=== PATIENT | female | born 1970 | race Caucasian/White ===

== ENCOUNTER 2024-12-31 04:43 | Emergency (ER) | payer BC ==
[~2024-12-31] VITALS: Ht 170.2 cm; Wt 58.1 kg
[2024-12-31 05:57] LABS: APPEARANCE,URINE CLEAR (CLEAR); BILIRUBIN,URINE NEGATIVE (NEGATIVE); BLOOD, URINE TRACE-INTA Ery/uL (NEGATIVE); COLOR,URINE YELLOW (YELLOW); KETONES,URINE NEGATIVE (NEGATIVE); LEUKOCYTE ESTERASE ,URINE 1+ (NEGATIVE); NITRITE, URINE NEGATIVE (NEGATIVE); PROTEIN,URINE NEGATIVE (NEGATIVE); UGLUCOSE NEGATIVE (NEGATIVE); UROBILINOGEN,URINE 0.2 EU/dL (0.2)
[2024-12-31 06:05] LABS: ADD URINE CULTURE YES; BACTERIA,URINE Many /HPF (None Seen)
[2024-12-31 06:06] LABS: MUCUS,URINE Many /LPF (None Seen); SQUAMOUS EPITHELIAL CELL,UR Many /HPF (None Seen)
[2024-12-31 06:08] LABS: BASOPHILS # (AUTO) 0.1 K/uL (0.0-0.2); BASOPHILS % (AUTO) 1.2 % (0.0-2.0); EOSINOPHILS % (AUTO) 0.8 % (0.0-6.0); HEMATOCRIT 43 % (33-45); HEMOGLOBIN 14.4 g/dL (11.5-14.8); LYMPHOCYTES # (AUTO) 1.5 K/uL (0.8-4.8); MEAN CORPUSCULAR HEMOGLOBIN 30 PG (26.0-33.0); MEAN CORPUSCULAR HGB CONC 34 g/dl (31.0-36.0); MEAN CORPUSCULAR VOLUME 88 fL (82-100); MONOCYTES # (AUTO) 0.4 K/uL (0.1-1.30); MONOCYTES % (AUTO) 7.9 % (2.0-12.0); NEUTROPHILS # (AUTO) 3.4 K/uL (1.8-8.9); NEUTROPHILS % (AUTO) 63.1 % (43.0-81.0); PLATELET COUNT (AUTO) 235 K/uL (150-450); RED BLOOD CELL COUNT(AUTO) 4.86 MIL/uL (4.0-5.2); RED CELL DISTRIBUTION WIDTH 12.9 % (11.5-15.0); WHITE BLOOD COUNT (AUTO) 5.4 K/uL (4.3-11.0)
[2024-12-31 06:17] LABS: CREATININE 0.7 mg/dL (0.6-1.3); POTASSIUM 4.2 mmol/L (3.5-5.1)
[2024-12-31 06:22] LABS: BILIRUBIN,DIRECT 0.2 mg/dL (0.0-0.2); BILIRUBIN,TOTAL 1.1 mg/dL (0.2-1.0); TOTAL PROTEIN, SERUM 7.2 g/dL (6.4-8.2)
[2024-12-31 07:43] LABS: PREGNANCY TEST URINE QUAL NEGATIVE (NEGATIVE)
[2024-12-31] MEDS ORDERED: IV NS 0.9% 250 ML IV ONE (08:12)
[2024-12-31] MEDS ORDERED: IOHEXOL-300 100 ML VIAL IV ONE (08:12)
[2024-12-31] MEDS ORDERED: CT SWABBABLE VALVE TRANS SET 1 EA INFUS.SET MC ONE (08:12)
[2024-12-31] MEDS ORDERED: SULF1TAB48 PO (08:53)
[2024-12-31 09:04] VITALS: BP 130/70; TEMP 98.5; O2SAT 100
== END 2024-12-31 09:06 | disposition home or self-care (01) ==
LOC: ER 04:47
DX: N39.0 Urinary tract infection, site not specified (principal); R10.84 Generalized abdominal pain; Z88.0 Allergy status to penicillin
CPT/HCPCS: 99285; 74177; 85025; 80048; 87086; 83690; 80076; 84703; 81001; 36415; J7050; Q9967